=== PATIENT | male | born 1960 | race Caucasian/White ===

== ENCOUNTER 2016-09-29 12:01 | Emergency (ER) | payer BC, OTHER ==
--- NOTE | 2016-09-29 12:30 | ERNOTE ---
Abdominal HPI - General Chief Complaint: Abdominal Pain Source: patient Exam Limitations: no limitations - Immun/Allergies/Home Medications Immunizatons: IMMUNIZATION HX Immunizations Up to Date No History of Influenza Vaccine No Hx Pneumococcal Vaccination No Allergies/Adverse Reactions: Allergies Iodinated Contrast Media - Oral and [Iodinated Contrast Media - IV Dye] Adverse Reaction (Verified 09/29/16 12:13) Home Medications: HOME MEDICATIONS Multivitamin [Multi Vitamin Daily] 1 each PO DAILY 07/19/14 [Last Taken Unknown] Mineral Oil [Fleet Mineral Oil Enema] 1 enema RC ONCE #1 btl 09/29/16 [Last Taken Unknown] Sennosides 8.6 mg PO PRN PRN 09/29/16 [Last Taken Unknown] - History of Present Illness Narrative: Patient is sent from the clinic by the mid-level practitioner for severe pain and left lower quadrant and inability to go to the bathroom. When I questioned the patient the patient states he only has left lower quadrant abdominal pain when he is passing stool. His regular regimen is one bowel movement every 3 days he can have [facility] But that is why he is here. He denies any nausea vomiting diarrhea constipation has been able to eat fine. He does not have any complaints at this time other than the constipation. Review of Systems - Review of Systems Constitutional: Present: no symptoms reported EYE: Present: no symptoms reported ENT: Present: no symptoms reported Respiratory: Present: no symptoms reported Cardiology: Present: no symptoms reported Gastrointestinal/Abdominal: Present: See HPI Genitourinary: Present: no symptoms reported Musculoskeletal: Present: no symptoms reported Skin: Present: no symptoms reported - Patient's Past Medical History Patient History - Medical: Anxiety, Depression Patient History - Cardiac/Respiratory: No pertinent hx Patient History - Cancer: No Hx of Cancer Patient History - Surgical Procedures: T & A Patient History - Other: None - Social History Living Situations: alone Abuse History: No History of abuse Psych History: Hx of Anxiety, Hx of Depression Smoking Status: Never smoker Do you dip or chew tobacco: Yes Alcohol Use: none Drug Use: none - Immunizations Immunizations Up to Date: No Hx Pneumococcal Vaccination: No History of Influenza Vaccine: No Physical Exam - Physical Exam General Appearance: Present: wd/wn, alert, no apparent distress Neck: Present: normal inspection, nontender Respiratory: Present: no respiratory distress, normal breath sounds, chest nontender, lungs clear Cardiovascular/Chest: Present: regular rate, rhythm, no murmur, normal peripheral pulses Gastrointestinal/Abdominal: Present: normal bowel sounds, nontender, nondistended, soft, no organomegaly, other - this abdomen is soft there is good bowel sounds there is no rebound tenderness this is a completely benign abdominal exam. I don't feel any masses. Aggressive palpation patient has a slight amount of left lower quadrant discomfort absolutely no rebound tenderness or referred pain. Back Exam: Present: normal inspection, normal range of motion, no vertebral tenderness Extremity Exam: Present: normal inspection, normal range of motion ED Progress - Vital Signs Patient's Vital Signs:: I have reviewed the patient's vital signs. Vital Signs: Vital Signs 09/29/16 12:03 Temperature 36.3 C L Pulse Rate 70 Respiratory 16 Rate Blood Pressure 135/80 O2 Sat by Pulse 97 Oximetry - X-Ray X-Ray #1 X-Ray: abdomen - Progress/Reassessment Chief Complaint: Abdominal Pain Plan - Plan Plan: Abdominal x-ray reveals a large amount of stool in the sigmoid colon, patient's white count is 7 his abdomen is completely benign at this time I believe this patient has constipation and I will prescribed fleets enema for this patient to go home and take it. I have educated the patient to follow-up with the mid- level practitioner that he saw today for follow-up tomorrow or day after tomorrow Departure - Departure Clinical Impression: Constipation Qualifiers: Constipation type: unspecified constipation type Qualified Code(s): K59.00 - Constipation, unspecified Disposition: Home self-care Condition: Good Instructions: Constipation, Adult, [id number] Additional Instructions: You have been diagnosed with constipation at this time we are prescribing him a Fleet enema. Your blood count is normal. Please use a Fleet enema and follow up with your mid-level practitioner tomorrow. Prescriptions: Mineral Oil [Fleet Mineral Oil Enema] 1 enema RC ONCE #1 btl
[2016-09-29 12:52] LABS: Hematocrit 45.3 % (42.0-52.0); Hemoglobin 15.8 gm/dL (13.5-18.0); Mean Cell Volume 88.3 fl (78-100); Mean Corpuscular Hemoglobin 30.8 pg (27-31); Mean Corpuscular Hgb Conc 34.9 g/dl (32-36); Mean Platelet Volume 9.5 fl (6.0-9.5); Neutrophil # 4.7 K/mm3 (1.3-6.0); Neutrophil % 61.8 % (42-75.0); Platelet Count 202 K/mm3 (150-450); Red Blood Count 5.13 M/mm3 (4.7-6.0); Red Cell Distribution Width 12.6 % (11.5-14.0); White Blood Count 7.5 K/mm3 (4.0-10.5)
[2016-09-29 13:10] VITALS: BP 118/80
--- OUTSIDE RECORDS SUMMARY | 2016-09-29 13:37 | XMS REPORT | Continuity of Care Document ---
:1960 Author Organization [facility] ([facility]) Address [address] [place] [address] Phone [phone] Care Team Providers Name Role Phone Unavailable Primary Care Provider Unavailable Source Comments This disclosure is being made pursuant to the Care Everywhere program, applicable federal and state laws, and may not contain all informaitonavailable regarding this patient.[facility] ([facility]) Active Allergies and Adverse Reactions Not on File Current Medications Not on file Active Problems Not on file Social History Tobacco Use Types Packs/Day Years Used Date Never Assessed Plan of Care Health Maintenance Due Date Last Done Comments HCV Screening 1960 Hepatitis B Vaccine (1 of 3 - Primary Series) 1960 Tdap Vaccine 07/07/1971 Lipid Disorder Screening 1978 MMR Vaccine 1978 Td Vaccine 1978 Colonoscopy 2010 Prostate Cancer Screening 2010 Influenza Vaccine: Seasonal (#1) 11/26/2015 Results from Last 3 Months Not on file
== END 2016-09-29 13:30 | disposition home or self-care (01) ==
LOC: ER 12:01
DX: K59.00 Constipation, unspecified (principal)